=== PATIENT | male | born 1975 | race Caucasian/White ===

== ENCOUNTER 2022-05-12 02:50 | Emergency (ER) | payer OTHER ==
[~2022-05-12] VITALS: Ht 149.9 cm; Wt 90.7 kg
[2022-05-12 02:52] VITALS: BP 127/75
--- NOTE | 2022-05-12 02:52 | NUR ---
PT NILDA MARES, TAKEN TO CHAIR
[2022-05-12 03:18] VITALS: BP 134/70
--- NOTE | 2022-05-12 03:20 | NUR ---
Patient discharged with v/s stable. Written and verbal after care instructions given and explained. Patient verbalized understanding. Ambulatory in custody WITH [facility]. All questions addressed prior to discharge. Advised to follow up with PMD.
== END 2022-05-12 03:16 ==
LOC: MED 02:50
DX: S09.90XA Unspecified injury of head, initial encounter (principal); V49.88XA Car occupant (driver) (passenger) injured in other specified transport accidents, initial encounter; Y93.89 Activity, other specified; Y92.89 Other specified places as the place of occurrence of the external cause; Y99.8 Other external cause status
CPT/HCPCS: 99283